=== PATIENT | female | born 1975 | race Two or more races ===

== ENCOUNTER 2019-12-02 09:29 | Emergency (ER) | payer MEDICAID ==
[~2019-12-02] VITALS: Ht 154.9 cm; Wt 68.0 kg
[2019-12-02 09:39] VITALS: BP 141/75
--- NOTE | 2019-12-02 09:55 | Emergency Room Report ---
History of Present Illness General Chief Complaint: Upper Respiratory Illness Source: Patient Present Illness HPI Disclaimer: Please note that this report is being documented using [employer] technology. This can lead to erroneous entry secondary to incorrect interpretation by the dictating instrument. HPI: 44-year-old female presents for evaluation of cough. Symptoms present 1 month. She states she has chronic sinusitis postnasal drip and sometimes gets in several months of a nonproductive cough. She feels phlegm is stuck in her throat. Denies fever, chills, change in cough, nausea, vomiting, chest pain, shortness of breath or other symptoms. No known sick contacts. She feels that sometimes food or water can get stuck in her throat but has no choking sensation or foreign body sensation at this time. Denies headaches or visual changes. She notes some improvement in her symptoms after a family member gave her a cough suppressant last night with dextromethorphan in it. PMH: Reviewed PSH: Reviewed Allergies: Reviewed Social Hx: Reviewed Allergies: Coded Allergies: No Known Allergies (Unverified , 12/02/19) COVID-19 Screening Contact w/high risk pt: No Experienced COVID-19 symptoms?: Yes COVID-19 Testing performed [employer]: No Patient History Last Menstrual Period: 11/01/19 Now: No Nursing Documentation-PMH Past Medical History: No Stated History Review of Systems All Other Systems: negative except mentioned in HPI Physical Exam Vital Signs Date Time Temp Pulse Resp B/P (MAP) Pulse Ox O2 Delivery O2 Flow Rate FiO2 12/02/19 09:36 98.4 94 19 141/75 (97) 98 12/02/19 09:39 Room Air General: Awake and alert, no acute distress HEENT: NC/AT. EOMI. PERRLA. No significant tenderness over the frontal or maxillary sinuses. Uvula midline. No edema, no erythema, no purulence Resp: Normal work of breathing. No crackles, no wheezing, no cough. Skin: Intact. No abrasions, laceration or rash over the exposed skin MSK: Normal tone and bulk. Moving all extremities. No obvious deformity. Neuro: Awake and alert. Mentating appropriately Medical Decision Making Diagnostic Impression: Primary Impression: Cough Additional Impression: Chronic sinusitis ER Course 44-year-old female presents for evaluation of 1 month cough. Differential includes was not limited to seasonal allergies, postnasal drip, chronic sinusitis, GERD, esophageal stricture among others. No acute distress, no evidence of pneumonia, pneumothorax or other significant findings on chest x- ray. May be inflammatory or allergic process. Will start patient on Claritin and brief course of prednisone as well as cough suppressant medication. We will follow-up with PMD for swallow study and reevaluation. She understands and agrees with treatment plan will be discharged home. Chest X-Ray Diagnostic Results Chest X-Ray Diagnostic Results : Chest X-Ray Ordered: Yes # of Views/Limited/Complete: 1 View Indication: Other - Cough EP Interpretation: Yes Interpretation: no consolidation, no effusion, no pneumothorax, no acute cardiopulmonary disease Impression: No acute disease Electronically Signed by: Electronically signed by Dr. Magnus Schroeder Last Vital Signs Date Time Temp Pulse Resp B/P (MAP) Pulse Ox O2 Delivery O2 Flow Rate FiO2 12/02/19 09:39 94 19 12/02/19 09:39 98.4 141/75 98 Room Air Disposition: HOME, SELF-CARE Condition: Stable Scripts Guaifenesin/Dextromethorphan (Robitussin Vylrs-[id number] Dm) 1 Each Capsule 1 EACH PO BID, #30 CAP Prov: Magnus Schroeder MD 12/02/19 Loratadine (Claritin*) 10 Mg Tab.rapdis 10 MG PO DAILY for Allergies for 30 Days, #30 TAB Prov: Magnus Schroeder MD 12/02/19 Prednisone* (PREDNISONE*) 20 Mg Tablet 40 MG ORAL DAILY for 3 Days, #6 TAB Prov: Magnus Schroeder MD 12/02/19 Referrals: NOT CHOSEN IPA/,REFERRING (PCP) Magnus Schroeder MD Dec 02, 2019 09:55
[2019-12-02] MEDS ORDERED: ROBITUSSIN COU1 EACH PO (09:58)
[2019-12-02] MEDS ORDERED: LORATADINE10 M1 PO (09:58)
[2019-12-02] MEDS ORDERED: PREDNISONE20 MG ORAL (09:58)
[2019-12-02 10:03] VITALS: BP 132/78
--- NOTE | 2019-12-02 10:25 | Diagnostic Imaging Report ---
EXAM: XR Chest, 1 View CLINICAL HISTORY: COUGH TECHNIQUE: Frontal view of the chest. COMPARISON: No relevant prior studies available. FINDINGS: Lungs: Unremarkable. The lungs appear clear. No focal consolidation. Pleural space: Unremarkable. The costophrenic angles are sharp. No visible pneumothorax. Heart: Unremarkable. No cardiomegaly. Mediastinum: Unremarkable. Bones/joints: Unremarkable. IMPRESSION: Unremarkable chest x-ray.
== END 2019-12-02 10:03 | disposition home or self-care (01) ==
LOC: EMR 09:40
DX: J32.9 Chronic sinusitis, unspecified (principal); R05 Cough
CPT/HCPCS: 71045; Z7502; 99283